=== PATIENT | female | born 1975 | race Caucasian/White ===

== ENCOUNTER 2018-06-26 17:58 | Emergency (ER) | payer OTHER ==
[~2018-06-26] VITALS: Ht 162.6 cm; Wt 74.8 kg
[2018-06-26 18:30] VITALS: Ht 162.6 cm; Wt 74.8 kg
--- NOTE | 2018-06-26 22:17 | ERD ---
ER Documentation Chief Complaint Chief Complaint pelvic area pain x 1 day HPI 42-year-old female, presents to the emergency department, complaining of pelvic pain for 1 day. The patient is , LMP 6 months ago, the pain is dull, constant, 5/10. The patient denies fevers, chills, no abdominal pain, no diarrhea or constipation, no vaginal bleeding or vaginal discharge. ROS All systems reviewed and are negative except as per history of present illness. Medications Home Meds Active Scripts Acetaminophen* (Tylenol*) 325 Mg Tablet, 2 TAB PO Q8 PRN for PAIN AND OR ELEVATED TEMP, #20 TAB Prov:TAWANDA SHAH MD 06/27/18 Ibuprofen* (Motrin*) 600 Mg Tab, 600 MG PO Q8, #20 TAB Prov:TAWANDA SHAH MD 06/27/18 Allergies Allergies: Coded Allergies: No Known Allergy (Unverified , 08/31/11) PMhx/Soc Hx Miscellaneous Medical Probl: No (DENIES SURGERIES/PMH) Hx Alcohol Use: No Hx Substance Use: No Hx Tobacco Use: No FmHx Family History: No diabetes, No coronary disease Physical Exam Vitals Vital Signs Date Temp Pulse Resp B/P (MAP) Pulse Ox O2 O2 Flow FiO2 Time Delivery Rate 06/27/18 97.9 74 20 106/56 98 Room Air 01:19 (73) 06/26/18 97.3 85 18 141/63 99 18:30 (89) Physical Exam Const: No acute distress Head: Atraumatic Eyes: Normal Conjunctiva ENT: Normal External Ears, Nose and Mouth. Neck: Full range of motion. No meningismus. Resp: Clear to auscultation bilaterally Cardio: Regular rate and rhythm, no murmurs Abd: Soft, non tender, non distended. Normal bowel sounds Skin: No petechiae or rashes Back: No midline or flank tenderness Ext: No cyanosis, or edema Neur: Awake and alert Psych: Normal Mood and Affect Result Diagram: 06/26/18222806/26/182228 Results 24 hrs Laboratory Tests Test 06/26/18 22:29 06/26/18 22:30 White Blood Count 4.3 10^3/ul Red Blood Count 4.69 10^6/ul Hemoglobin 12.6 g/dl Hematocrit 39.9 % Mean Corpuscular Volume 85.1 fl Mean Corpuscular Hemoglobin 26.9 pg Mean Corpuscular Hemoglobin Concent 31.6 g/dl Red Cell Distribution Width 12.7 % Platelet Count 233 10^3/UL Mean Platelet Volume 9.4 fl Immature Granulocytes % 0.200 % Neutrophils % 33.8 % Lymphocytes % 55.4 % Monocytes % 8.0 % Eosinophils % 2.1 % Basophils % 0.5 % Nucleated Red Blood Cells % 0.0 /100WBC Immature Granulocytes # 0.010 10^3/ul Neutrophils # 1.4 10^3/ul Lymphocytes # 2.4 10^3/ul Monocytes # 0.3 10^3/ul Eosinophils # 0.1 10^3/ul Basophils # 0.0 10^3/ul Nucleated Red Blood Cells # 0.0 10^3/ul Urine Color YELLOW Urine Clarity SLIGHTLY CLOUDY Urine pH 5.0 Urine Specific [place] 1.017 Urine Ketones NEGATIVE mg/dL Urine Nitrite NEGATIVE mg/dL Urine Bilirubin NEGATIVE mg/dL Urine Urobilinogen NEGATIVE mg/dL Urine Leukocyte Esterase NEGATIVE Willow/ul Urine Microscopic RBC 31 /HPF Urine Microscopic WBC 1 /HPF Urine Squamous Epithelial Cells FEW /HPF Urine Bacteria FEW /HPF Urine Mucus MANY /HPF Urine Hemoglobin 2+ mg/dL Urine Glucose NEGATIVE mg/dL Urine Total Protein NEGATIVE mg/dl Sodium Level 139 mmol/L Potassium Level 3.8 mmol/L Chloride Level 103 mmol/L Carbon Dioxide Level 29 mmol/L Anion Gap 7 Blood Urea Nitrogen 18 mg/dl Creatinine 0.55 mg/dl Est Glomerular Filtrat Rate mL/min > 60 mL/min Glucose Level 111 mg/dl Calcium Level 9.5 mg/dl Total Bilirubin 0.2 mg/dl Direct Bilirubin 0.00 mg/dl Indirect Bilirubin 0.2 mg/dl Aspartate Amino Transf (AST/SGOT) 35 IU/L Alanine Aminotransferase (ALT/SGPT) 39 IU/L Alkaline Phosphatase 74 IU/L Total Protein 7.4 g/dl Albumin 4.3 g/dl Globulin 3.10 g/dl Albumin/Globulin Ratio 1.38 Lipase 83 U/L POC Beta HCG, Qualitative NEGATIVE Current Medications Medications Dose Sig/Liana Start Time Status Last (Trade) Ordered Route PRN Stop Time Admin Dose Reason Admin Sodium 1,000 ml @ Q1H STAT 06/26/18 DC 3/14/19 Chloride 1,000 mls/hr IV 22:22 22:49 06/26/18 23:21 Ondansetron 4 mg ONCE ONCE 06/26/18 DC 06/26/18 HCl (Zofran IV 22:24 22:48 Inj) 06/26/18 22:25 Ketorolac 15 mg ONCE STAT 06/26/18 DC 06/26/18 Tromethamine IV 22:24 22:49 (Toradol) 06/26/18 22:25 DIAGNOSTIC IMAGING REPORT Patient: WENDY AHN : 1975 Age: 42 Sex: F MR #: [id number] DOS: 06/26/182221 Ordering MD: TAWANDA SHAH MD Location: [facility] Room/Bed: PROCEDURE: CT abdomen and pelvis without contrast. CLINICAL INDICATION: 42-year-old female. Abdominal pain. TECHNIQUE: CT scan of the abdomen and pelvis without contrast was performed on a multi-slice CT scanner utilizing axial imaging from the lung bases through the pubis symphysis. One or more the following does reduction techniques were utilized: Automated exposure control, adjustment of the mA/ or kV according to patient's size, or use of iterative reconstruction technique. Sagittal and coronal reformatted images were made. DICOM images are available for review. The CTDIvol is 16.41 mGy and the DLP is 935.46 mGycm. COMPARISON: None. FINDINGS: CT abdomen Visualized lung bases: Dependent changes posterior right lower lobe. No significant pleural or pericardial effusion. Liver: Limited evaluation without IV contrast. No gross lesion. Gallbladder and bile ducts: No calcified gallstones or pericholecystic fluid. No biliary ductal dilatation. Spleen: Normal appearance. Pancreas: Normal appearance. No ductal dilatation. No mass. No peripancreatic stranding. Adrenal glands: Normal appearance. Kidneys: No hydronephrosis or renal stones. Vasculature: No abdominal aortic aneurysm. Calcified plaque absent. Negative IVC. Lymph nodes: No adenopathy. GI: No evidence of obstruction or bowel wall thickening. Gas and stool throughout the colon. Nondilated small bowel loops. Peritoneal cavity: No free fluid or free air. CT pelvis GI: Negative terminal ileum. Negative appendix. Negative sigmoid colon. Negative rectum. : Normal appearing distal ureters and urinary bladder. Negative uterus and left ovary. 1.7 cm right ovarian cyst. Peritoneal cavity: No free fluid. Lymph nodes: No adenopathy. Osseous structures: No lytic or blastic lesions. IMPRESSION: 1. 1.7 cm right ovarian cyst. 2. Otherwise negative noncontrast CT abdomen and pelvis exam. Procedures/MDM Vital signs stable. Differential diagnosis considered include UTI, cystitis, , endometriosis, pelvic inflammatory disease, ruptured ovarian cyst, ectopic , appendicitis, kidney stone. Less likely malignancy or acute abdomen but is still a possibility. During the ED course the patient remained stable, no new complaints. Results and clinical impression discussed with the patient who agrees with management. The patient is stable to be treated outpatient and will be discharged home with a Rx for ibuprofen, some side effects of prescribed medications (headache, rash, nausea, vomiting, diarrhea, drowsiness, habituation, bleeding, hypertension, interactions with other medications) were reviewed. Follow up with the primary care provider in the next 48h has been recommended. If symptoms persist, worsen or new symptoms develop, then patient should return to the ED immediately. Instructions explained and given directly by me to the patient with acknowledgment and demonstrated understanding. Disclaimer: Inadvertent spelling and grammatical errors are likely due to EHR/dictation software use and do not reflect on the overall quality of patient care. Also, please note that the electronic time recorded on this note does not necessarily reflect the actual time of the patient encounter. Departure Diagnosis: Primary Impression: Acute pain in female pelvis Additional Impression: Ovarian cyst Condition: Stable Additional Instructions: Muchas drake por [facility] para west servicio. Esperamos que en west visita a la nicolle de emergencia west problema medico haya sido solucionado y que se sienta mucho mejor. Para estar seguros que west mejoria sigue en proceso, le pedimos el favor de hacer zonia sancho de seguimiento medico con west doctor primario en los proximos 2-4 gomes. Lleve con usted estos documentos y las medicinas recetadas. Si inna sintomas empeoran, NO SE ESPERE, por favor regrese a nicolle de emergencia INMEDIATAMENTE. En efe que usted no tenga un mdico de atencin primaria: Llame al mdico o clnica comunitaria de referencia que aparece abajo vanessa las horas de consultorio para hacer zonia sancho para que le vean. CLINICAS: [facility] [phone] [facility] [phone] [facility] [phone] [place] [phone] [place] [phone] [facility] [phone] TAWANDA HERNANDES MD Jun 26, 2018 22:17
[2018-06-26] MEDS ORDERED: SOD CHLORIDE 0.9% 1,000 ML IV STA (22:22)
[2018-06-26] MEDS ORDERED: ONDANSETRON 4 MG INJ IV ONE (22:24)
[2018-06-26] MEDS ORDERED: KETOROLAC 15 MG INJ IV STA (22:24)
[2018-06-27] MEDS ORDERED: IBUP-1542 PO (01:06)
[2018-06-27] MEDS ORDERED: ACET325T33 PO (01:06)
[2018-06-27 01:19] VITALS: BP 106/56; PULSE 74; RESP 20
== END 2018-06-27 01:21 | disposition home or self-care (01) ==
LOC: FTE 17:58
DX: N83.201 Unspecified ovarian cyst, right side (principal)
CPT/HCPCS: 36415; 74176; 80053; 81001; 81025; 83690; 85025; 96374; 96375; J1885; J2405; J7030; Z7502

== ENCOUNTER 2018-08-27 07:18 | Emergency (ER) | payer OTHER ==
[~2018-08-27] VITALS: Ht 157.5 cm; Wt 75.6 kg
[~2018-08-27 07:18] MED LIST: ACET325T33 PO; IBUP-1542 PO
[2018-08-27 07:29] VITALS: Ht 157.5 cm; Wt 75.6 kg
[2018-08-27] MEDS ORDERED: KETOROLAC 15 MG INJ IV STA (07:52)
[2018-08-27] MEDS ORDERED: SOD CHLORIDE 0.9% 1,000 ML IV STA (07:52)
[2018-08-27] MEDS ORDERED: ONDANSETRON 4 MG INJ IV STA (07:52)
[2018-08-27] MEDS ORDERED: FAMO-96 PO (11:43)
[2018-08-27] MEDS ORDERED: ACET500C5 PO (11:43)
[2018-08-27 12:04] VITALS: BP 111/67; PULSE 64; RESP 18
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
--- NOTE | 2018-08-29 14:47 | RADRPT ---
Vent Rate: 63 bpm RR Interval: 0 msec FL Interval: 164 msec QRS Duration: 92 msec QT Interval: 416 msec QTC Interval: 425 msec P-R-T [place]: 77 - 41 - 44 degrees Normal sinus rhythm Low voltage QRS Borderline ECG Electronically Signed By: [facility]
== END 2018-08-27 12:05 | disposition home or self-care (01) ==
LOC: FTE 07:18
DX: R10.2 Pelvic and perineal pain (principal); R07.9 Chest pain, unspecified
CPT/HCPCS: 36415; 71045; 76830; 76856; 80053; 81001; 81025; 83690; 84484; 85025; 93005; 96374; 96375; J1885; J2405; J7030; Z7502